=== PATIENT | female | born 1970 | race Two or more races ===

== ENCOUNTER → 2022-08-28 | Emergency (ER) | payer BC ==
[~2022-08-28] VITALS: Ht 162.6 cm; Wt 106.6 kg
== END | disposition home or self-care (01) ==
LOC: ER 21:35
DX: M79.604 Pain in right leg (principal); S82.001A Unspecified fracture of right patella, initial encounter for closed fracture; W18.30XA Fall on same level, unspecified, initial encounter; Y93.01 Activity, walking, marching and hiking; Y92.410 Unspecified street and highway as the place of occurrence of the external cause; Y99.9 Unspecified external cause status